=== PATIENT | female | born 1975 | race Caucasian/White ===

== ENCOUNTER 2017-03-24 17:08 | Inpatient (IN) ==
[2017-03-24] MEDS ORDERED: VANCOMYCIN INJ 1,000 MG in SODIUM CHLORIDE 0.9% 250 ML IV STA (18:41)
--- NOTE | 2017-03-24 18:44 | Emergency Department Note ---
Arrival - Arrival Chief Complaint: Abscess Stated Complaint: SWELLING IN RIGHT INNER THIGH/[facility] ED Nursing Triage Note: abcess to right lower buttock thigh area, abcess opened on 03/21, pt reports worsening of the abcess, small amount of draining. reports low grade fever. denies chills, states that she has been taking her abx, bactrim , prescribed. Mode of Arrival: Ambulatory Limitations: No Limitations Source: Patient Time Seen by Provider: 03/24/17 18:39 - History of Present Illness HPI Narrative: This 41-year-old white female presents with progression of an extensive right perirectal cellulitis/abscess. The patient was seen initially Tuesday with an incision made and some pus expressed at that time. She was begun on Bactrim; however, since that time symptoms and size of the area involved have progressed. She denies chills or fever and has been compliant with her antibiotic to date. Her wound culture from Tuesday revealed MRSA which was sensitive to the sulfa. Of note she does have a history of lupus but has recently moved from [place] and has no primary care physician at this time. Onset (ago): day(s) (Patient presents 4 days post onset of symptoms) Date of Last Menstrual Period: 03/16/2017 Allergies/Adverse Reactions: Allergies Allergy/AdvReac Type Severity Reaction Status Date / Time clindamycin Allergy Shakiness Verified 12/30/16 18:33 diphenhydramine Allergy Shakiness Verified 12/30/16 18:33 [From Benadryl] hydroxyzine [From Vistaril] Allergy Shakiness Verified 12/30/16 18:33 ketorolac [From Toradol] Allergy Shakiness Verified 12/30/16 18:33 Home Medications: Home Medications Medication Instructions Recorded Confirmed Type Gabapentin 800 mg PO QID 12/30/16 02/22/17 History Lisinopril 20 mg PO DAILY 01/17/17 02/22/17 History Oxycodone HCl/Acetaminophen 1 each PO Q6H PRN #15 tablet 03/21/17 Rx [Percocet 7.5-325 mg Tablet] Sulfameth/Trimeth 800-160 Tab 1 tablet PO BID #14 tablet 03/21/17 Rx [Bactrim DS Tab] Review of System - Review of System 12 point system: reviewed and no additional remarkable complaints except as stated - Review of System Skin: Present: as per HPI Medical,Surgical,& Family Hx - Medical History Cardio: History of: Hypertension Rheumatology: History of;: Systemic Lupus Erythematosus Hematology: History of: Anemia - Social History Smoking Status: Current every day smoker Exam Physical Examination: GENERAL: Well developed, well nourished white female in no acute distress. HEENT: Normocephalic. No trauma. Moist mucous membranes. EOMI. PERRLA. ENT NML NECK: Supple. No adenopathy. CARDIAC: Regular. No murmurs. Heart rate 100 CHEST: Clear to auscultation. No respiratory distress. O2 sat 96% ABDOMEN: Soft. Nontender. Active bowel sounds. EXTREMITIES: No trauma. Normal ROM. No pedal edema.: Extensive cellulitis abscess of the right perirectal area extending into the perineal area which is exquisitely tender. SKIN: No diaphoresis. No rash. Skin as above. NEURO: Alert. No focal deficits. Vital Signs: Vital Signs Temperature 97.6 F 03/24/17 17:29 Pulse Rate 72 03/24/17 19:19 Respiratory Rate 20 03/24/17 19:19 Blood Pressure 136/95 03/24/17 19:19 O2 Sat by Pulse Oximetry 96 03/24/17 19:19 Course - Reevaluation(s) Reevaluation #1: Discussed with patient the need for further evaluation treatment in hospital. - Consultations Consultation #1: Discussed with Dr. Palacios who will admit the patient for further evaluation treatment. Results - Labs CBC & BMP: 03/24/17 19:07 03/24/17 19:07 Labs: I reviewed the laboratory and noted its gross normalcy. Disposition Clinical Impression: MRSA cellulitis/abscess Case discussed with: patient Disposition: Still a Patient Condition: Guarded Time of Disposition: 20:27
[2017-03-24] MEDS ORDERED: VANCOMYCIN 1,000 MG VIAL ONE (19:23)
[2017-03-24 19:34] LABS: Basophils % 0.4 % (0.0-0.8); Eosinophils # 0.4 10*3/uL (0.0-0.87); Eosinophils % 4.3 % (0.00-10.9); Hematocrit 41.3 VOL% (35.7-47.0); Hemoglobin 14.4 GM/DL (12.0-16.0); Immature Granulocytes % 0.4 %; Immature Granulocytes Absolute 0.04 #; Lymphocytes # 2.3 10*3/uL (1.4-4.0); Mean Corpuscular HGB Conc 34.9 GM/DL (32-36); Mean Corpuscular Hemoglobin 33 PG (27-34); Mean Corpuscular Volume 94.9 FL (87-102); Mean Platelet Volume 9.7 FL (9.6-12.0); Monocytes # 0.9 10*3/uL (0.11-0.8); Monocytes % 9.4 % (1.7-12.7); Neutrophils # 6.1 10*3/uL (1.4-7.4); Neutrophils % 62.5 % (38.7-73.9); Platelet Count 314 T/CUMM (130-400); Red Blood Count 4.35 MC/CUMM (3.8-5.5); Red Cell Distribution Width 12.7 % (9.3-17.3); White Blood Count 9.8 T/CUMM (4-12)
[2017-03-24 19:56] LABS: Alanine Aminotransferase 14 U/L (13-56); Albumin 3.2 G/DL (3.4-5.0); Alkaline Phosphatase 102 U/L (45-117); Aspartate Amino Transferase 11 U/L (0-37); Bilirubin,Total < 0.39 MG/DL (0.2-1.0); Blood Urea Nitrogen 15 MG/DL (7-18); Glucose 90 MG/DL (74-106); Osmolality,Calculated 268.2 MOS/KG (273-304); Potassium 4.3 MMOL/L (3.5-5.1); Sodium 134 MMOL/L (136-145); Total Protein 6.5 G/DL (6.4-8.3)
[2017-03-24] MEDS ORDERED: VANCOMYCIN INJ 1,000 MG in SODIUM CHLORIDE 0.9% 250 ML IV SCH (20:30)
[2017-03-24] MEDS: SODIUM CHLORIDE 0.9% 1,000 ML IV SCH (22:45)
[2017-03-24] MEDS: HYDROmorphone 2 MG/1 ML VIAL IV PRN (23:22)
[2017-03-25] MEDS: HYDROmorphone 2 MG/1 ML VIAL IV PRN ×7 (03:20→20:10)
[2017-03-25] MEDS: ONDANSETRON 4 MG/2 ML VIAL IV PRN (06:10)
[2017-03-25] MEDS ORDERED: VANCOMYCIN INJ 1,250 MG in SODIUM CHLORIDE 0.9% 250 ML IV SCH (07:30)
[2017-03-25] MEDS: SODIUM CHLORIDE 0.9% 1,000 ML IV SCH ×2 (08:13→17:00)
[2017-03-25] MEDS: VANCOMYCIN INJ 1,250 MG in SODIUM CHLORIDE 0.9% 250 ML IV SCH ×2 (08:56→20:09)
[2017-03-25] MEDS ORDERED: ACETAMINOPHEN 325 MG TABLET PO PRN (09:27)
[2017-03-25] MEDS ORDERED: LORazepam 2 MG/1 ML VIAL IV ONE (09:33)
--- NOTE | 2017-03-25 09:35 | General Surg History&Physical ---
Assessment and Plan - Time spent with patient Time spent with patient: Less than 30 minutes (1) Abscess of skin or subcutaneous tissue Status: Acute Assessment and plan: Impression: Right perirectal perineum abscess Plan: IV antibiotics and surgical debridement drainage Current Visit: No Qualifiers: Site of cutaneous abscess of trunk: perineum (2) Diabetes Status: Acute Assessment and plan: Impression: Diabetes adult onset Plan: Medical management Current Visit: Yes History of Present Illness Chief complaint: Increased swelling right perirectal and perineal area History of present illness: Ms. Townsend is a 41 year old female white who was seen in emergency room on Tuesday at which time an incision was made in a perirectal abscess with some drainage present. She was placed on sulfur and the final cultures which showed positive to that. Unfortunately comes back to the emergency room last night with increased pain and swelling in the right perirectal perineal area. At this point there is a big indurated mass present there as if she going need some additional drainage and incision in this particular area. We will go ahead and set her up for surgery and try to get everything lined up and get this drained. Home Medications Medication Instructions Recorded Confirmed Type Gabapentin 800 mg PO QID 12/30/16 03/25/17 History Oxycodone HCl/Acetaminophen 1 each PO Q6H PRN #15 tablet 03/21/17 03/25/17 Rx [Percocet 7.5-325 mg Tablet] Sulfameth/Trimeth 800-160 Tab 1 tablet PO BID #14 tablet 03/21/17 03/25/17 Rx [Bactrim DS Tab] Allergies Allergy/AdvReac Type Severity Reaction Status Date / Time clindamycin Allergy Shakiness Verified 12/30/16 18:33 diphenhydramine Allergy Shakiness Verified 12/30/16 18:33 [From Benadryl] hydroxyzine [From Vistaril] Allergy Shakiness Verified 12/30/16 18:33 ketorolac [From Toradol] Allergy Shakiness Verified 12/30/16 18:33 Medical,Surgical,& Family Hx - Medical History Cardio: History of: Hypertension Neurology: History of: Migraine HEENT: History of: Dental Problems (Upper dentures) Rheumatology: History of;: Systemic Lupus Erythematosus Hematology: History of: Anemia Other: History of: Cancer (skin cancer) - Surgical History HEENT Surgeries: Surgical HX of: Tonsilectomy & Adenoidectomy Abdominal Surgeries: Surgical HX of: Colonoscopy, EGD Reproductive Surgeries: Surgical HX of;: Section (x2) - Family History Family History: Reports;: Family Diabetes (Son, Type 1), Family Heart Disease ( father), Family Hypertension (mother) - Social History Smoking Status: Current every day smoker Frequency of Alcohol Use: None Type of Drug Use: None Exam - Constitutional Vitals: Period Temp Pulse Resp BP Sys/Sheehan Pulse Ox Last 24 Hr 97.6 F-98.0 F 69-101 16-20 119-156/70-95 92-96 General appearance: mild distress - Head Head exam: Present: normal inspection - ENT ENT exam: Present: normal exam - Neck Neck exam: Present: normal inspection - Respiratory Respiratory exam: Present: clear to auscultation bilaterally, rales - Cardiovascular Cardiovascular exam: Present: RRR - GI/Abdominal GI/Abdominal exam: Present: hypoactive bowel sounds, soft - Anus/Rectum Anus/Rectum: other (There is a tender swollen mass with some erythema at the right peroneal area. There is an incision near the perirectal area without obvious drainage.) - Extremities Exam Extremities exam: Present: normal inspection - Back Exam Back exam: Present: normal inspection - Neurological Exam Neurological exam: Present: alert, oriented X3, CN II-XII intact - Skin Skin exam: Present: normal color, warm, dry 12 point system: reviewed and no additional remarkable complaints except as stated Quality Measures - VTE Contraindication to Pharmacological VTE Prophylaxis: High Risk of Bleeding Results - Labs CBC & BMP: 03/24/17 19:07 03/24/17 19:07 Lab Results: I have reviewed the past 24 hour labs
--- NOTE | 2017-03-25 09:45 | Order Completion Report ---
See report scanned to EMR
[2017-03-25] MEDS ORDERED: BUPIVACAINE 0.5% /EPI 10 ML VIAL ONE (09:55)
[2017-03-25] MEDS: DEXTROSE 5% NACL 0.45% 1,000 ML IV SCH ×2 (10:08→16:33)
[2017-03-25] MEDS ORDERED: ONDANSETRON 4 MG/2 ML VIAL ONE ×2 (10:55→11:52)
[2017-03-25] MEDS ORDERED: PROPOFOL 200 MG/20 ML VIAL IV ONE (10:55)
[2017-03-25] MEDS ORDERED: LIDOCAINE 1% 5 ML VIAL ONE (10:55)
--- NOTE | 2017-03-25 11:43 | Operative Note ---
Date of procedure: 03/25/17 Pre-op diagnosis: Worsening right perineal abscess Post-op diagnosis: same Procedure: Operative note: Preoperative diagnosis: Recurrent worsening right perineal abscess Postop diagnosis: Same Procedure: Excisional debridement and drainage of right perineal abscess Surgeon Dr. Palacios Anesthesia general with local Brief history 41-year-old white female who Chidi had a perirectal abscess drained that has grown out a staph but she returns at this time with a worsening perineal area with a large mass present that is tender and swollen and indurated. The original incisional site is not draining at this time. Because this is worse we like to bring the surgery at this time for further debridement drainage. Appears to me that patient would not tolerate well a lot of packings in this wound at this time. Procedure: With patient in dorsal lithotomy position prepped and draped in sterile fashion timeout and antibiotics completed approaches area of the right perineum where there is a mass at 7 x 8 cm in size with this incisional opening near the anal area in the lower portion of this mass. At that point we infiltrated around with local anesthetic. It seemed to probe and want to go up towards the labia at this time. I ended up picking an area about midway make an incision and opening this up widely to the skin subtenons tissue. I then cultured aerobically and anaerobically with swabs and then begin to debride the deep subcutaneous tissue and necrotic fatty tissue in this wound bed in order to get tissue for cultures and clean up the wound bed itself. It did seem to dissected towards the labial area. Eyes try and avoid a big deep open wound on his perineum concerned that she would not be able to handle this very well. I elected just to use these 2 incisions we used electrocauterization control bleeding and washed irrigated saline solution. I have taken 1/2 inch Gladys and did a through and through the 2 openings we have to secure that with a safety pin. I then took another half inch Gladys and placed it up towards the labia area and sutured that in with some 3-0 nylon. With these in place I elected not to do any packing and just put some fluffs only with some ABDs. I do not think she will tolerate lateral removal of packing and lateral repacking at this time. With that done we did took patient recovery room. Estimated blood loss 20 cc Sponge count correct 2 Drains half inch Chambers Complications none Condition stable satisfactory Anesthesia: GETA, local (0.25% Marcaine with epinephrine mixed [id number] 1% Xylocaine plain) Surgeon / Physician: Mark Palacios Estimated blood loss: other (A 20 cc) Specimens: other (Tissue and swabs for culture) Condition: stable Disposition: floor Results - Labs CBC & BMP: 03/24/17 19:07 03/24/17 19:07 Discharge Plan - Discharge Medications No Action Sulfameth/Trimeth 800-160 Tab [Bactrim DS Tab] 1 tablet PO BID #14 tablet Gabapentin 800 mg PO QID Oxycodone HCl/Acetaminophen [Percocet 7.5-325 mg Tablet] 1 each PO Q6H PRN # 15 tablet PRN Reason: Pain - Follow Up or Referral - Forms/Instructions
[2017-03-25] MEDS ORDERED: CHLORHEXIDINE 4% SOLN 118 ML BOTTLE TOP ONE (11:44)
[2017-03-25] MEDS ORDERED: GLUCAGON 1 MG VIAL IM PRN (11:45)
[2017-03-25] MEDS ORDERED: DEXTROSE 50% 25 GM/50 ML SYRINGE IV PRN (11:45)
[2017-03-25] MEDS ORDERED: BISACODYL 5 MG TABLET PO PRN (11:45)
[2017-03-25] MEDS ORDERED: HYDROmorphone 2 MG/1 ML VIAL ONE (11:52)
[2017-03-25] MEDS: GABAPENTIN 400 MG CAPSULE PO SCH ×3 (12:00→20:09)
[2017-03-25] MEDS ORDERED: ONDANSETRON 4 MG/2 ML VIAL IV PRN (12:10)
[2017-03-25] MEDS ORDERED: fentaNYL 100 MCG/2 ML VIAL ONE (12:10)
[2017-03-25] MEDS ORDERED: SEVOFLURANE 1 UNIT/15 MINUTE INH ONE (12:10)
[2017-03-25] MEDS ORDERED: MIDAZOLAM 2 MG/2 ML VIAL ONE (12:10)
[2017-03-25] MEDS ORDERED: LABETALOL 100 MG/20 ML VIAL IV ONE (12:40)
[2017-03-25] MEDS ORDERED: LABETALOL 20 MG/4 ML SYRINGE IV ONE (13:00)
--- NOTE | 2017-03-25 13:09 | Anesthesia Post-Op ---
Anesthesia Post OP - Post Ansesthetic Evaluation Patient seen in post op: Yes Resp: within normal limits CV: within normal limits (Pt. did not take BP med this morning labetalol %mg give and BP came down 160 systolic.) Mental: within normal limits Temp: within normal limits [id number]: within normal limits Nausea and Vomiting: within normal limits Pain: within normal limits
[2017-03-25] MEDS: INSULIN REGULAR 100 UNIT/ML SUBCUT SCH ×2 (15:34→20:05)
[2017-03-25] MEDS: DOCUSATE SODIUM 100 MG CAPSULE PO SCH (20:09)
[2017-03-25] MEDS: SULFAMETHOX/TRIMETHOPRIM 800-160 MG TABLET PO SCH (20:10)
[2017-03-25] MEDS: SODIUM HYPOCHLORITE 0.25% IRRIG 473 ML BOTTLE TOP SCH (22:06)
[2017-03-25] MEDS: LORazepam 2 MG/1 ML VIAL IV PRN (23:16)
[2017-03-26] MEDS: HYDROmorphone 2 MG/1 ML VIAL IV PRN ×4 (01:00→20:38)
[2017-03-26 02:12] LABS: Basophils % 0.3 % (0.0-0.8); Eosinophils # 0.5 10*3/uL (0.0-0.87); Eosinophils % 5.2 % (0.00-10.9); Hematocrit 41.7 VOL% (35.7-47.0); Hemoglobin 14.4 GM/DL (12.0-16.0); Immature Granulocytes % 0.5 %; Immature Granulocytes Absolute 0.05 #; Lymphocytes # 2.9 10*3/uL (1.4-4.0); Mean Corpuscular HGB Conc 34.5 GM/DL (32-36); Mean Corpuscular Hemoglobin 32 PG (27-34); Mean Corpuscular Volume 93.7 FL (87-102); Monocytes # 1.1 10*3/uL (0.11-0.8); Monocytes % 10.3 % (1.7-12.7); Neutrophils # 5.7 10*3/uL (1.4-7.4); Neutrophils % 55.7 % (38.7-73.9); Platelet Count 340 T/CUMM (130-400); Red Blood Count 4.45 MC/CUMM (3.8-5.5); Red Cell Distribution Width 12.8 % (9.3-17.3); White Blood Count 10.3 T/CUMM (4-12)
[2017-03-26 02:39] LABS: Calcium 8.6 MG/DL (8.5-10.1); Potassium 4.1 MMOL/L (3.5-5.1)
[2017-03-26] MEDS: SODIUM CHLORIDE 0.9% 1,000 ML IV SCH ×2 (05:23→14:47)
[2017-03-26] MEDS: ENOXAPARIN 40 MG/0.4 ML SYRINGE SUBCUT SCH (06:11)
[2017-03-26] MEDS: DEXTROSE 5% NACL 0.45% 1,000 ML IV SCH ×3 (06:11→17:19)
[2017-03-26] MEDS: INSULIN REGULAR 100 UNIT/ML SUBCUT SCH ×4 (08:27→20:32)
[2017-03-26] MEDS: VANCOMYCIN INJ 1,250 MG in SODIUM CHLORIDE 0.9% 250 ML IV SCH ×3 (08:28→21:00)
[2017-03-26] MEDS: SULFAMETHOX/TRIMETHOPRIM 800-160 MG TABLET PO SCH ×2 (08:29→20:37)
[2017-03-26] MEDS: PANTOPRAZOLE 40 MG TABLET PO SCH (08:29)
[2017-03-26] MEDS: GABAPENTIN 400 MG CAPSULE PO SCH ×4 (08:29→20:38)
[2017-03-26] MEDS: DOCUSATE SODIUM 100 MG CAPSULE PO SCH ×2 (08:29→20:37)
--- NOTE | 2017-03-26 10:28 | Event Note ---
Afebrile vital signs stable. Labs okay. Patient has no complaints. Wound examined. Gladys in place. Moderate amount of drainage but no purulence. Continue local wound care and antibiotics.
[2017-03-26] MEDS: SODIUM HYPOCHLORITE 0.25% IRRIG 473 ML BOTTLE TOP SCH ×2 (11:30→21:00)
[2017-03-27] MEDS: LORazepam 2 MG/1 ML VIAL IV PRN (00:15)
[2017-03-27] MEDS: ONDANSETRON 4 MG/2 ML VIAL IV PRN ×2 (00:15→23:10)
[2017-03-27] MEDS: SODIUM CHLORIDE 0.9% 1,000 ML IV SCH ×3 (01:32→19:38)
[2017-03-27] MEDS: DEXTROSE 5% NACL 0.45% 1,000 ML IV SCH ×3 (01:32→18:34)
[2017-03-27] MEDS: ENOXAPARIN 40 MG/0.4 ML SYRINGE SUBCUT SCH (06:55)
[2017-03-27] MEDS: INSULIN REGULAR 100 UNIT/ML SUBCUT SCH ×4 (07:14→20:31)
[2017-03-27] MEDS: SODIUM HYPOCHLORITE 0.25% IRRIG 473 ML BOTTLE TOP SCH ×2 (09:23→20:30)
[2017-03-27] MEDS: VANCOMYCIN INJ 1,250 MG in SODIUM CHLORIDE 0.9% 250 ML IV SCH ×2 (09:23→19:51)
[2017-03-27] MEDS: GABAPENTIN 400 MG CAPSULE PO SCH ×4 (09:24→20:31)
[2017-03-27] MEDS: DOCUSATE SODIUM 100 MG CAPSULE PO SCH ×2 (09:25→20:30)
[2017-03-27] MEDS: PANTOPRAZOLE 40 MG TABLET PO SCH (09:25)
[2017-03-27] MEDS: SULFAMETHOX/TRIMETHOPRIM 800-160 MG TABLET PO SCH ×2 (09:25→20:30)
--- NOTE | 2017-03-27 11:02 | Event Note ---
No complaints. Afebrile vital signs stable. Gladys in place. No obvious pus. Growing gram-positive cocci and gram-negative rods. Continue Bactrim and vancomycin.
[2017-03-27] MEDS: HYDROmorphone 2 MG/1 ML VIAL IV PRN ×2 (13:54→19:50)
[2017-03-28] MEDS: DEXTROSE 5% NACL 0.45% 1,000 ML IV SCH ×2 (00:10→09:35)
[2017-03-28] MEDS: LORazepam 2 MG/1 ML VIAL IV PRN ×2 (00:12→21:30)
[2017-03-28] MEDS: ENOXAPARIN 40 MG/0.4 ML SYRINGE SUBCUT SCH (06:23)
[2017-03-28] MEDS: SODIUM CHLORIDE 0.9% 1,000 ML IV SCH (06:23)
[2017-03-28] MEDS: INSULIN REGULAR 100 UNIT/ML SUBCUT SCH ×4 (08:37→21:04)
[2017-03-28] MEDS: SODIUM HYPOCHLORITE 0.25% IRRIG 473 ML BOTTLE TOP SCH ×2 (09:00→21:55)
[2017-03-28] MEDS: GABAPENTIN 400 MG CAPSULE PO SCH ×4 (09:26→21:03)
[2017-03-28] MEDS: HYDROmorphone 2 MG/1 ML VIAL IV PRN ×3 (09:26→21:04)
[2017-03-28] MEDS: PANTOPRAZOLE 40 MG TABLET PO SCH (09:26)
[2017-03-28] MEDS: SULFAMETHOX/TRIMETHOPRIM 800-160 MG TABLET PO SCH ×2 (09:26→21:03)
[2017-03-28] MEDS: DOCUSATE SODIUM 100 MG CAPSULE PO SCH ×2 (09:26→21:04)
[2017-03-28] MEDS: VANCOMYCIN INJ 1,250 MG in SODIUM CHLORIDE 0.9% 250 ML IV SCH (09:36)
[2017-03-28] MEDS ORDERED: SODIUM CHLORIDE 0.9% IV SCH (10:00)
[2017-03-28] MEDS ORDERED: DORIPENEM IV SCH (10:00)
[2017-03-28] MEDS: MEROPENEM 500 MG in SODIUM CHLORIDE 0.9% 50 ML IV SCH ×2 (10:00→22:57)
--- NOTE | 2017-03-28 10:00 | General Surgery Progress Note ---
Assessment and Plan - Time spent with patient Time spent with patient: Less than 30 minutes (1) Abscess of skin or subcutaneous tissue Status: Acute Assessment and plan: Impression: Right perirectal perineum abscess Plan: IV antibiotics and surgical debridement drainage 03-28-2017 Patient is afebrile and wound care is progressing at this time. She has drains in place and there is does not seem to be any further induration or erythematous changes at this time. Wound care is progressing and we are teaching her how to panel the care of the wounds at this point. Her cultures are back with an E. coli and staph both requiring on 2 separate antibiotics in order to cover this area. We will switch her over to some Augmentin at this time and probably stop her vancomycin and do a little course of some door pin and for the next 2448 hrs. Will have wound care teach her the family how to care for the wound in the hopes of being able to get her out tomorrow or the next day. Current Visit: No Qualifiers: Site of cutaneous abscess of trunk: perineum (2) Diabetes Status: Acute Assessment and plan: Impression: Diabetes adult onset Plan: Medical management Current Visit: Yes Subjective Patient reports: Present: no new complaints, pain is less, tolerating a regular diet, bowel movement, afebrile Exam - Constitutional Vitals: Period Temp Pulse Resp BP Sys/Sheehan Pulse Ox Last 24 Hr 97.3 F-98.3 F 80-89 16-20 148-169/89-101 94-100 General appearance: mild distress - Head Head exam: Present: normal inspection - ENT ENT exam: Present: normal exam - Neck Neck exam: Present: normal inspection - Respiratory Respiratory exam: Present: clear to auscultation bilaterally, rales - Cardiovascular Cardiovascular exam: Present: RRR - GI/Abdominal GI/Abdominal exam: Present: hypoactive bowel sounds, soft - Anus/Rectum Anus/Rectum: other (Perineal wound on the right is clean with no further progression or drainage) - Extremities Exam Extremities exam: Present: normal inspection - Back Exam Back exam: Present: normal inspection - Neurological Exam Neurological exam: Present: alert, oriented X3, CN II-XII intact - Skin Skin exam: Present: normal color, warm, dry Results - Labs CBC & BMP: 03/26/17 01:45 03/26/17 01:45 Lab Results: I have reviewed the past 24 hour labs Quality Measures - VTE Contraindication to Pharmacological VTE Prophylaxis: High Risk of Bleeding Specialty Discharge - Follow Up or Referrals Follow up with: Mark Palacios MD [Physician] -
[2017-03-28] MEDS: ONDANSETRON 4 MG/2 ML VIAL IV PRN ×2 (10:41→21:06)
[2017-03-28] MEDS: AMOXICILLIN/CLAV 500 MG TABLET PO SCH ×2 (16:27→21:03)
[2017-03-29] MEDS: SODIUM CHLORIDE 0.9% 1,000 ML IV SCH ×2 (03:27→12:00)
[2017-03-29] MEDS: DEXTROSE 5% NACL 0.45% 1,000 ML IV SCH ×3 (03:28→09:30)
[2017-03-29] MEDS: MEROPENEM 500 MG in SODIUM CHLORIDE 0.9% 50 ML IV SCH ×2 (03:28→10:22)
[2017-03-29] MEDS: HYDROmorphone 2 MG/1 ML VIAL IV PRN ×3 (03:38→14:18)
[2017-03-29] MEDS: ENOXAPARIN 40 MG/0.4 ML SYRINGE SUBCUT SCH (06:37)
[2017-03-29] MEDS: INSULIN REGULAR 100 UNIT/ML SUBCUT SCH ×2 (07:30→13:12)
[2017-03-29] MEDS: ONDANSETRON 4 MG/2 ML VIAL IV PRN (10:13)
[2017-03-29] MEDS: SULFAMETHOX/TRIMETHOPRIM 800-160 MG TABLET PO SCH (10:26)
[2017-03-29] MEDS: GABAPENTIN 400 MG CAPSULE PO SCH ×2 (10:26→12:57)
[2017-03-29] MEDS: AMOXICILLIN/CLAV 500 MG TABLET PO SCH ×2 (10:26→15:51)
[2017-03-29] MEDS: DOCUSATE SODIUM 100 MG CAPSULE PO SCH (10:26)
[2017-03-29] MEDS: PANTOPRAZOLE 40 MG TABLET PO SCH (10:27)
[2017-03-29] MEDS: SODIUM HYPOCHLORITE 0.25% IRRIG 473 ML BOTTLE TOP SCH (13:11)
--- NOTE | 2017-03-29 14:32 | Discharge Summary ---
Hospital Course - Hospital Course Hospital Course: Discharge summary: Discharge diagnosis: Right perineal perirectal abscess 2. History of lupus Procedure: Excisional debridement and drainage of right perineal abscess. Brief summary: 41-year-old white female with a history of lupus who comes in emergency room on Tuesday with a described perirectal abscess which it was open and emergency room. She returned several days later because of increased redness and erythematous changes above this area were was drained. She was admitted and put on IV antibiotics we took her surgery next day. Time of surgery found that this extended up to perineal area pretty extensively with a good bit of necrotic draining tissue. We then cultured and opened it and I tried not to make a big wound because it did not think she could manage it effectively saw put through and through drains and the Gladys drain up in the area to try to let it draining clean and slowly improved that way without need for a large open wound. She has been getting wound care at this time tolerated fairly well. Cultures come back with 2 organisms and I think we can cover with 2 separate antibiotics at this time p.o. otherwise would have to use IV antibiotics to get her under control. C seems to be able to take care of the wounds and understands what is required so we will go ahead and try to get her lined up for some wound care and let her manage this at home and an effective fashion. We will see if she can do then get her back in the office in a week or so in order to get her see if we get her drains out at that time. - Time spent with patient Time with patient DS: Greater than 30 minutes Diagnosis - Discharge Diagnosis (1) Abscess of skin or subcutaneous tissue Status: Chronic (2) Diabetes Status: Chronic (3) Lupus Status: Chronic Specialty Discharge - Follow Up or Referrals Follow up with: Mark Palacios MD [Physician] - 04/18/17 9:00 am (please bring medicine , insurance cards and photo id to your appointment) Discharge Plan - Discharge Data Disposition: Disch To Home/Self Care Condition at Discharge: Stable Discharge Diet: diabetic diet Activity: increase activity as tolerated, other (I needed a foam pad for sitting ) Hygiene: may shower Weight Bearing at Discharge: full weight bearing Driving: not for (1 week) Contact your physician if you experience:: fever over 101, Redness or swelling, Nausea/Vomiting, Bleeding, pain uncontrolled by pain medications Wound / Dressing Care Instructions: Wound care to the right perineal perirectal wound daily. 1. Shower using soap of choice or Hibiclens to clean the area. 2. Attempt to irrigate around the drains with 20 cc of half-strength Dakin solution. 3. Apply fluffs and ABDs to the wound. 4. Wear panties to help hold dressings in place - Discharge Medications New Acetaminophen Tab [Tylenol Tab] 650 mg PO Q6H PRN tablet PRN Reason: Pain Mild (1-3) And/Or Fever Amoxicillin/Clav Tab [Augmentin Tab] 500 mg PO TID #30 tablet Fluconazole Tab [Diflucan Tab] 100 mg PO DAILY #4 tablet HYDROcodone/ACETAMIN 7.5-325 [[place] 7.5-325] 1 tablet PO Q6H PRN #30 tablet PRN Reason: Pain Moderate (4-7) Sodium Hypochlorite 0.25% Irr [[place]akins 1/2 Strength 0.25% Soln] 20 ml TOP DAILY #1 bottle Continue Sulfameth/Trimeth 800-160 Tab [Bactrim DS Tab] 1 tablet PO BID #20 tablet Gabapentin 800 mg PO QID Discontinued Oxycodone HCl/Acetaminophen [Percocet 7.5-325 mg Tablet] 1 each PO Q6H PRN # 15 tablet PRN Reason: Pain - Follow Up or Referral Follow Up: Mark Palacios MD [Physician] - 04/18/17 9:00 am (please bring medicine , insurance cards and photo id to your appointment) - Forms/Instructions Exam - Constitutional Vitals: Period Temp Pulse Resp BP Sys/Sheehan Pulse Ox Last 24 Hr 96.9 F-98.0 F 71-87 18-18 130-151/72-103 94-100 General appearance: mild distress - Head Head exam: Present: normal inspection - ENT ENT exam: Present: normal exam - Neck Neck exam: Present: normal inspection - Respiratory Respiratory exam: Present: clear to auscultation bilaterally, rales - Cardiovascular Cardiovascular exam: Present: regular rate and rhythm - GI/Abdominal GI/Abdominal exam: Present: hypoactive bowel sounds, soft, other (Right perirectal perineal area has [address] wound through and through one projecting up towards the labia at this time. Minimal drainage and no induration at this time.) - Extremities Exam Extremities exam: Present: normal inspection - Back Exam Back exam: Present: normal inspection - Neurological Exam Neurological exam: Present: alert, oriented X3, CN II-XII intact - Psychiatric Psychiatric exam: Present: normal affect, normal mood, anxious - Skin Skin exam: Present: normal color, warm, dry Discharge Results Procedures and tests throughout hospitalization: Pending Orders 03/24/17 19:07 Blood Culture Stat Labs on day of discharge: Preliminary micro results at discharge 03/24/17 19:07 Blood Culture - Preliminary Blood No growth at 3 days 03/24/17 19:07 Blood Culture - Preliminary Blood No growth at 3 days DS: Provider Date of admission: 03/24/17 20:28 Primary care physician: . No PCP Attending physician on admission: Mark Palacios MD Consults: 03/25/17 09:33 Consult to Anesthesiology [CONS] Routine Consulting Provider: Reason for Anesthesiology: Pre-op Clearance 03/25/17 11:45 Consult to Wound Care - [place] [CONS] Routine Reason for Wound Care: Wound Care Management Consult Comment: perineal wound Discharging clinician: Mark Palacios MD Expected date of discharge: 03/29/17
[2017-03-29 20:03] VITALS: BP 132/74
== END 2017-03-29 16:00 | disposition home or self-care (01) | DRG 581 ==
LOC: N.ED 17:08 → N.EDINP 20:28 → N.3E 21:22
PROVIDERS: ADMIT Specialist; ATTEND Specialist